=== PATIENT | female | born 1960 | race Hispanic/Latino ===

== ENCOUNTER 2020-08-06 12:56 | Emergency (ER) | payer SELFPAY ==
[2020-08-06 14:00] LABS: #Basophils 0.1 thou/uL (0.0-0.2); #Lymphocytes 0.7 thou/uL (1.20-3.40); #Monocytes 0.4 thou/uL (0.11-0.59); #Neutrophils 3.5 thou/uL (1.40-6.50); %Basophils 2.7 % (0.0-1.0); %Eosinophils 0.1 % (0.0-10.0); %Lymphocytes 15.7 % (21.0-51.0); %Monocytes 7.4 % (0.0-10.0); %Neutrophils 74.1 % (42.0-75.0); Hemoglobin 14.4 g/dL (12.0-16.0); Mean Corpuscular HGB CONC 33.2 g/dL (32.0-36.0); Mean Corpuscular Hemoglobin 30.9 pg (27.0-31.0); Mean Corpuscular Volume 93.1 fL (78.0-98.0); Mean Platelet Volume 9.1 fL (7.4-10.4); Platelet Count 168 thou/uL (130-400); RBC Distribution Width 12.1 % (11.5-14.5); Red Blood Cell (RBC) Count 4.67 mill/uL (4.20-5.40); White Blood Cell (WBC) Count 4.7 thou/uL (4.8-10.8)
[2020-08-06] MEDS ORDERED: Ondansetron PF 4 MG/2 ML Vial ONE (14:11)
[2020-08-06] MEDS ORDERED: Glycopyrrolate 0.4 MG/ 2 ML VIAL ONE (14:11)
[2020-08-06] MEDS ORDERED: Famotidine In NaCl 20 mg/50 ml Premix Bag ONE (14:11)
[2020-08-06] MEDS ORDERED: Acetaminophen 500 MG TAB ONE (14:11)
[2020-08-06 14:17] LABS: ALT (SGPT) 18 U/L (8-55); AST (SGOT) 19 U/L (5-34); Albumin 3.8 g/dL (3.4-4.8); Alkaline Phosphatase 66 U/L (40-110); Anion Gap 16 mmol/L (10-20); BUN (Urea Nitrogen) 23 mg/dL (9.8-20.1); Bilirubin, Total 0.4 mg/dL (0.2-1.2); Calc. Creatinine Clearance 0 mL/min (70-130); Calcium 8.1 mg/dL (7.8-10.44); Carbon Dioxide 25 mmol/L (23-31); Chloride 99 mmol/L (98-107); Globulin 1.8 g/dL (2.4-3.5); Glucose 116 mg/dL (80-115); Potassium 3.8 mmol/L (3.5-5.1); Protein, Total 5.6 g/dL (5.8-8.1); Sodium 136 mmol/L (136-145)
[2020-08-07 01:53] LABS: SARS-CoV-2 PCR by NAA DETECTED (NotDetected)
== END 2020-08-06 13:17 | disposition home or self-care (01) ==
LOC: BURERS 12:56
DX: U07.1 COVID-19 (principal); R11.2 Nausea with vomiting, unspecified; I10 Essential (primary) hypertension
CPT/HCPCS: 36415; 80053; 85025; 87635; 96365; 96375; J2405; U0003; U0005

== ENCOUNTER 2022-07-21 19:27 | Emergency (ER) | payer OTHER, MEDICAID ==
[2022-07-21] MEDS ORDERED: Ketorolac Tromethamine 30 MG/ML VIAL ONE (19:45)
[2022-07-21 19:49] LABS: #Basophils 0.1 thou/uL (0.0-0.2); #Eosinphils 0.3 thou/uL (0.0-0.7); #Lymphocytes 2.8 thou/uL (1.20-3.40); #Monocytes 0.5 thou/uL (0.11-0.59); #Neutrophils 5.1 thou/uL (1.40-6.50); %Basophils 1.1 % (0.0-1.0); %Eosinophils 3.1 % (0.0-10.0); %Neutrophils 57.9 % (42.0-75.0); Hemoglobin 13.6 g/dL (12.0-16.0); Mean Corpuscular HGB CONC 31.7 g/dL (32.0-36.0); Mean Corpuscular Hemoglobin 30.7 pg (27.0-31.0); Mean Corpuscular Volume 96.8 fl (78.0-98.0); Mean Platelet Volume 8.3 fL (7.4-10.4); Platelet Count 258 10x3/uL (130-400); RBC Distribution Width 12.5 % (11.5-14.5); Red Blood Cell (RBC) Count 4.42 mill/uL (4.20-5.40); White Blood Cell (WBC) Count 8.7 10x3/uL (4.8-10.8)
[2022-07-21 20:07] LABS: ALT (SGPT) 16 U/L (8-55); AST (SGOT) 11 U/L (5-34); Alkaline Phosphatase 78 U/L (40-110); Anion Gap 14 mmol/L (10-20); BUN (Urea Nitrogen) 25 mg/dL (9.8-20.1); Bilirubin, Total Less than 0.2 mg/dL (0.2-1.2); CRP (Inflammatory) 0.88 mg/dL (= or < 0.5); Calc. Creatinine Clearance 0 mL/min (70-130); Calcium 9.1 mg/dL (7.8-10.44); Carbon Dioxide 25 mmol/L (23-31); Chloride 106 mmol/L (98-107); Estimated GFR 89; Globulin 3.1 g/dL (2.4-3.5); Glucose 126 mg/dL (80-115); Magnesium 1.5 mg/dL (1.6-2.6); Potassium 3.9 mmol/L (3.5-5.1); Protein, Total 7.1 g/dL (5.8-8.1); Sodium 141 mmol/L (136-145)
[2022-07-21 20:20] LABS: Bilirubin Negative (Negative); Blood, Urine Trace (Negative); Clarity Cloudy (Clear); Glucose, Urine (Dipstick) Negative (Negative); Ketone, Urine Trace mg/dL (Negative); Leukocyte Small (Negative); Nitrite Negative (Negative); Protein, Urine (Dipstick) Negative (Neg-Trace); Specific Gravity, Urine 1.025 (1.005-1.030); pH, Urine 5.5 (5.0-9.0)
[2022-07-21 20:24] LABS: RBC/HPF 0-3 HPF (0-3)
[2022-07-21 20:25] LABS: Bacteria/HPF 3+ HPF (None Seen); Mucous/LPF 1+ LPF (<2+)
[2022-07-21 20:30] LABS: Amphetamine Not Detected (NotDetected); Barbiturates Screen Not Detected (NotDetected); Benzodiazepine Screen Not Detected (NotDetected); Cocaine Metabolite Screen Not Detected (NotDetected); Methadone Not Detected (NotDetected); Methamphetamine Not Detected (NotDetected); Opiate Screen Not Detected (NotDetected); Oxycodone Screen Not Detected (NotDetected); Phencyclidine (PCP) Not Detected (NotDetected); THC/Cannabinoid Screen Not Detected (NotDetected); Tricyclic Screen Not Detected (NotDetected)
[2022-07-21 20:31] LABS: Medtox Control Line Valid? VALID (VALID)
[2022-07-21] MEDS ORDERED: cefTRIAXone (ROCEPHIN) 1 GM VIAL ONE (20:36)
== END 2022-07-21 21:00 | disposition home or self-care (01) ==
LOC: BURERS 19:27
DX: N39.0 Urinary tract infection, site not specified (principal); K44.9 Diaphragmatic hernia without obstruction or gangrene; I10 Essential (primary) hypertension; J45.909 Unspecified asthma, uncomplicated
CPT/HCPCS: 71045; 74176; 80053; 80306; 81003; 81015; 83605; 83690; 83735; 85025; 86140; 96365; 96375; J0696; J1885